=== PATIENT | male | born 1960 | race African-American/Black ===

== ENCOUNTER 2021-04-24 04:38 | Emergency (ER) | payer OTHER ==
[~2021-04-24] VITALS: Ht 175.3 cm; Wt 93.3 kg
[2021-04-24 05:01] VITALS: BP 150/99
[2021-04-24 05:49] LABS: CLARITY URINE TURBID (CLEAR); KETONES URINE 1+ (NEGATIVE); LEUKOCYTE ESTERASE URINE 2+ (NEGATIVE); NITRITE URINE NEGATIVE (NEGATIVE); OCCULT BLOOD URINE 3+ (NEGATIVE); PROTEIN URINE 2+ (NEGATIVE); SPECIFIC GRAVITY URINE 1.018 (1.005-1.030)
[2021-04-24 05:53] LABS: COLOR URINE BLOODY (YELLOW)
[2021-04-24] MEDS ORDERED: CEPH500T MT (06:27)
== END 2021-04-24 06:49 | disposition home or self-care (01) ==
LOC: ER 04:38
DX: R31.9 Hematuria, unspecified (principal)
CPT/HCPCS: 81003; 99283